=== PATIENT | male | born 1975 | race Caucasian/White ===

== ENCOUNTER 2019-12-07 07:08 | Inpatient (IN) | payer SELFPAY ==
[2019-12-07] VITALS (15 sets, daily range): BP systolic 134–158; BP diastolic 81–105; PULSE 64–109; RESP 14–24; TEMP 36.3–37.1; O2SAT 90–98; BMI 24.4
--- NOTE | 2019-12-07 07:27 | CT_ITS ---
WS: [id number] CT ABDOMEN AND PELVIS WITH CONTRAST HISTORY: upper abdominal pain TECHNIQUE: Imaging performed of the abdomen and pelvis with IV contrast. Single phase imaging of the abdomen. Coronal and sagittal reformats are submitted. All CT scans at [facility] use at least one of these dose optimization techniques: automated exposure control; mA and/or kV adjustment per patient size (includes targeted exams where dose is matched to clinical indication); or iterativ e reconstruction. IV CONTRAST: Omnipaque 300; 95 mL IV. Oral contrast: No DLP: 642.64 mGy.cm COMPARISON: 02/07/2019 chest CTA Lower thorax: Benign granulomata at the lung bases. Heart is normal size. No hiatal hernia. Liver/biliary system: Liver is mildly enlarged. No mass or intrahepatic dilatation. Gallbladder: Prior cholecystectomy. Pancreas: Normal. Spleen: Normal. Adrenal glands: Normal. Right kidney: Normal. Left kidney: Normal. Aorta: Moderate atherosclerosis of the abdominal aorta. No aneurysm. Lymphadenopathy: There are small retroperitoneal lymph nodes. Small benign-appearing lymph nodes in t he inguinal regions bilaterally. Free fluid: None. GI tract: Dilated small bowel loops with hyperemia. Fluid-filled small bowel loops with wall thickeni ng. There is a change in caliber in the mid small bowel seen on image 60 of series 2 There is additio nal increased fluid at the cecum. The appendix is not definitely identified. Abdominal wall: Unremarkable abdominal wall. No hernia. Pelvis: Normal. Bones: Reversal the normal lumbar lordosis at L1-2. No fractures. CT/CT abdomen pelvis w con* [id number] IMPRESSION: 1. Moderate diffuse small bowel fluid distention with wall thickening and hype remia. There is an area of tethering and mesenteric swirling with changing shawna nenita in the mid small bowel. Seen on image 60 of series 2. Suspect this may be r esponsible for the small bowel dilatation. Adhesions or small bowel stricture o r neoplasm should be considered. 2. The appendix is not definitely visualized. 3. Advanced atherosclerosis of aorta for patient's age. 4. Prior cholecystectomy.
--- NOTE | 2019-12-07 07:27 | W.ED.ABDPA2 ---
Documented by User: CHRISTIAN Townsend 12/07/19 11:03 HPI - Abdominal Pain General: Chief Complaint: Abdominal Pain Stated Complaint: ABDOMINAL PAIN Time Seen by Provider: 12/07/19 07:16 Source: patient Mode of arrival: ambulatory Limitations: no limitations History of Present Illness: HPI narrative: Patient is a 44-year-old male who presents to ED today with complaints of upper abdominal pain over the past 2 weeks. He states pain has been constant with intermittent exacerbations. He cannot find any worsening or alleviating factors to his discomfort. He states it does feel similar to when he had his gallbladder taken out. Patient reports one episode of vomiting almost daily since he was a kid . This has not increased at all. He has not noticed any blood in his vomit. He has no changes in bowel or urinary habits. No fevers. Patient states he does consume alcohol regularly. No recent NSAID use. He does have a history of heartburn that used to be treated with medications but no longer takes these. MD elicited complaint: abdominal pain Pertinent past history: none Onset (ago): week(s) Pain Consistency: constant and intermittent Location: Epigastric Severity: moderate Quality: stabbing, sharp and burning Radiation: none Migration to: no migration Exacerbating factors: nothing Relieving factors: nothing Associated Symptoms: Reports vomiting (reports 1 episode of vomiting daily since I was a kid ; no increase lately); Denies change in stool character, chills, coffee ground emesis, constipation, diarrhea, dysuria, fever(s), heartburn, hematochezia, hematemesis, melena, nausea and syncope Review of Systems General: Reports: 10 or more systems reviewed and unremarkable except in HPI and below Const: Denies: fever(s), chills, body aches, change in appetite, change in weight, fatigue, malaise or night sweats Eyes: Denies: change in vision or blurry vision ENMT: Denies: throat pain, enlarged tonsils or odynophagia Card: Denies: chest pain, palpitations, irregular heart rhythm, edema, swelling of feet/ankles, lightheadedness, syncope, pre-syncope, dyspnea on exertion, orthopnea, leg pain with exertion or acrocyanosis Resp: Denies: dyspnea, productive cough, non-productive cough, pain on inspiration, hemoptysis or chest congestion GI: Reports: abdominal pain and vomiting (reports 1 episode of vomiting daily since I was a kid ; no increase lately); Denies: nausea, hematemesis, coffee ground emesis, dysphagia, heartburn, diarrhea, constipation, pain on defecation, change in stool character, hematochezia, melena, white/light colored stool or steatorrhea : Denies: flank pain, difficulty urinating, dysuria, urinary frequency, urinary urgency or urinary hesitancy Musc: Denies: neck pain, back pain, extremity pain, extremity swelling, joint pain or joint swelling Skin/Breast: Denies: rash Neuro: Denies: headache(s), numbness in extremities, weakness in extremities or sensory changes PFSH ED PFSH: Medical History COPD (chronic obstructive pulmonary disease) Hypertension Normal coronary arteries on arteriogram done at [facility] [place] Surgical History History of cholecystectomy Done in [place], [place] Family History Mother Cancer Father CHF (congestive heart failure) Social History Smoking and tobacco status: current every day smoker Alcohol intake: current Alcohol intake frequency: 3 or more drinks per day Alcohol type: beer Current occupational status: employed Current occupation: [employer] Physical Exam Const: COMMON NORMALS: average body habitus, patient oriented x3, no limitations, healthy appearing, alert and well nourished GENERAL APPEARANCE: in distress (appears uncomfortable/in pain) HENMT: COMMON NORMALS: normocephalic and atraumatic HEAD & SCALP: normocephalic and atraumatic Chest: COMMONS NORMALS: normal inspection of the chest and normal palpation of entire chest wall Resp: COMMON NORMALS: normal respiratory effort and clear to auscultation bilaterally AUSCULTATION: clear to auscultation bilaterally Cardio: COMMON NORMALS: regular rhythm RATE: tachycardic RHYTHM: regular rhythm GI: COMMON NORMALS: No hepatosplenomegaly present and no masses INSPECTION: Yes normal to inspection AUSCULTATION: Yes normoactive bowel sounds PALPATION: Yes Tenderness to palpation present (GI) (throughout upper abdomen) and Yes No hepatosplenomegaly present : COMMON NORMALS: Yes no CVA tenderness BLADDER/KIDNEY EXAM: Yes no CVA tenderness Back/Pelvis: COMMON NORMALS: no CVA tenderness Extremity: COMMON NORMALS: normal to inspection and full ROM Neuro: COMMON NORMALS: patient oriented x3 SENSORIUM/ORIENTATION: Yes alert Skin: COMMON NORMALS: no rashes or lesions noted GENERAL SKIN EXAM: no rashes or lesions noted Course Vital Signs: Vital signs: Vital Signs Temperature 99.2 F 12/09/19 14:22 Pulse Rate 93 12/09/19 14:22 Respiratory Rate 20 H 12/09/19 14:22 Blood Pressure 166/92 12/09/19 14:22 Pulse Oximetry 97 12/09/19 14:22 MDM - Abdominal Pain MDM Narrative: Medical decision making narrative: pt appears to have SBO on his CT scan; he is also hyponatremic at 121; spoke to Dr. De La Garza and he will speak to general surgery/hospitalist for admission; will order NG tube Lab Data: Labs: Lab Results 12/07/19 12/07/19 12/07/19 Range/Units 07:35 07:35 07:35 WBC 6.6 (4.0-10.0) 10^3/ uL RBC 5.03 (4.1-5.3) 10^6/u L Hgb 15.5 (11.7-16.6) g/dL Hct 44.0 (42.0-52.0) % MCV 87.5 (80-94) fL MCH 30.8 (28.0-34.0) pg MCHC 35.2 (30.0-36.0) g/dL RDW 13.3 (12.1-15.1) % Plt Count 328 (130-400) 10^3/c mm MPV 8.8 (7.4-10.4) fL Neut % (Auto) 58.4 % Lymph % (Auto) 29.5 % Cannon % (Auto) 10.5 % Eos % (Auto) 0.8 % Baso % (Auto) 0.5 % Neut # (Auto) 3.9 (1.8-7.7) 10^3/u L Lymph # (Auto) 1.9 (0.8-4.8) 10^3/u L Cannon # (Auto) 0.7 (0.2-0.9) 10^3/u L Eos # (Auto) 0.1 (0.0-0.8) 10^3/u L Baso # (Auto) 0.0 (0.0-0.1) 10^3/u L Nucleated RBC % (a uto) 0 % Nucleated RBCs # 0.0 /100WBC Sodium 121 L (136-145) mmol/L Potassium 4.4 (3.5-5.1) mmol/L Chloride 87 L (98-107) mmol/L Carbon Dioxide 21 L (22-29) mmol/L Anion Gap 17.4 (5-19) BUN 3 L (6-20) mg/dL Creatinine 0.7 (0.7-1.2) mg/dL GFR Calculation 122.0 (90-130) mL/min Glucose 92 (65-115) mg/dL Calculated Osmolal ity 247 L (285-295) mOsm/k g Lactate (0.5-2.2) mmol/L Uric Acid 4.4 (3.4-7.0) mg/dL Calcium 9.4 (8.5-10.5) mg/dL Total Bilirubin 0.2 (0.15-1.2) mg/dL AST 28 (0-40) U/L ALT 19 (0-41) U/L Alkaline Phosphata se 68 (40-130) IU/L Total Protein 7.0 (6.6-8.7) g/dL Albumin 4.0 (3.5-5.2) g/dL Globulin 3.0 (1.3-4.6) g/dL Lipase 20 (13-60) U/L Urine Color (Yellow) Urine Appearance (CLEAR) Urine pH (5-7) Ur Specific Gravit y (1.005-1.030) Urine Protein (Negative) Urine Glucose (UA) (Normal) Urine Ketones (Negative) Urine Blood (Negative) Urine Nitrate (Negative) Urine Bilirubin (NEGATIVE) Urine Urobilinogen (Negative) mg/dL Ur Leukocyte Chantelle ase (Negative) Urine RBC (0-2) /hpf Urine WBC (0-5) /hpf Ur Squamous Epith Cells (0-5) Urine Bacteria (NONE) 12/07/19 12/07/19 Range/Units 08:43 09:30 WBC (4.0-10.0) 10^3/ uL RBC (4.1-5.3) 10^6/u L Hgb (11.7-16.6) g/dL Hct (42.0-52.0) % MCV (80-94) fL MCH (28.0-34.0) pg MCHC (30.0-36.0) g/dL RDW (12.1-15.1) % Plt Count (130-400) 10^3/c mm MPV (7.4-10.4) fL Neut % (Auto) % Lymph % (Auto) % Cannon % (Auto) % Eos % (Auto) % Baso % (Auto) % Neut # (Auto) (1.8-7.7) 10^3/u L Lymph # (Auto) (0.8-4.8) 10^3/u L Cannon # (Auto) (0.2-0.9) 10^3/u L Eos # (Auto) (0.0-0.8) 10^3/u L Baso # (Auto) (0.0-0.1) 10^3/u L Nucleated RBC % (a uto) % Nucleated RBCs # /100WBC Sodium (136-145) mmol/L Potassium (3.5-5.1) mmol/L Chloride (98-107) mmol/L Carbon Dioxide (22-29) mmol/L Anion Gap (5-19) BUN (6-20) mg/dL Creatinine (0.7-1.2) mg/dL GFR Calculation (90-130) mL/min Glucose (65-115) mg/dL Calculated Osmolal ity (285-295) mOsm/k g Lactate 2.0 (0.5-2.2) mmol/L Uric Acid (3.4-7.0) mg/dL Calcium (8.5-10.5) mg/dL Total Bilirubin (0.15-1.2) mg/dL AST (0-40) U/L ALT (0-41) U/L Alkaline Phosphata se (40-130) IU/L Total Protein (6.6-8.7) g/dL Albumin (3.5-5.2) g/dL Globulin (1.3-4.6) g/dL Lipase (13-60) U/L Urine Color Straw (Yellow) Urine Appearance Clear (CLEAR) Urine pH 7.0 (5-7) Ur Specific Gravit y 1.000 L (1.005-1.030) Urine Protein 1+ H (Negative) Urine Glucose (UA) Norm (Normal) Urine Ketones Negative (Negative) Urine Blood Neg (Negative) Urine Nitrate Negative (Negative) Urine Bilirubin Neg (NEGATIVE) Urine Urobilinogen Norm (Negative) mg/dL Ur Leukocyte Chantelle ase Negative (Negative) Urine RBC None (0-2) /hpf Urine WBC None (0-5) /hpf Ur Squamous Epith Cells 0-4 H (0-5) Urine Bacteria Trace (NONE) Imaging Data ^: CT Abd/Pel: Radiologist's impression: [place] [address] CT Scan Report Signed Patient: Ck Calvillo Unit #: [id number] : 1975 Age/Sex: 44 / M ADM Date: 12/07/19 Loc: ER Room/Bed: Attending Dr: Ordering Provider/Ordering MD: Roxanne Varghese Date of Service: 12/07/19 Procedure(s): CT abdomen pelvis w con* [id number] Accession Number(s): [id number] Report Number: [id number] WS: [id number] CT ABDOMEN AND PELVIS WITH CONTRAST HISTORY: upper abdominal pain TECHNIQUE: Imaging performed of the abdomen and pelvis with IV contrast. Single phase imaging of the abdomen. Coronal and sagittal reformats are submitted. All CT scans at [facility] use at least one of these dose optimization techniques: automated exposure control; mA and/or kV adjustment per patient size (includes targeted exams where dose is matched to clinical indication); or iterative reconstruction. IV CONTRAST: Omnipaque 300; 95 mL IV. Oral contrast: No DLP: 642.64 mGy.cm COMPARISON: 02/07/2019 chest CTA Lower thorax: Benign granulomata at the lung bases. Heart is normal size. No hiatal hernia. Liver/biliary system: Liver is mildly enlarged. No mass or intrahepatic dilatation. Gallbladder: Prior cholecystectomy. Pancreas: Normal. Spleen: Normal. Adrenal glands: Normal. Right kidney: Normal. Left kidney: Normal. Aorta: Moderate atherosclerosis of the abdominal aorta. No aneurysm. Lymphadenopathy: There are small retroperitoneal lymph nodes. Small benign-appearing lymph nodes in the inguinal regions bilaterally. Free fluid: None. GI tract: Dilated small bowel loops with hyperemia. Fluid-filled small bowel loops with wall thickening. There is a change in caliber in the mid small bowel seen on image 60 of series 2 There is additional increased fluid at the cecum. The appendix is not definitely identified. Abdominal wall: Unremarkable abdominal wall. No hernia. Pelvis: Normal. Bones: Reversal the normal lumbar lordosis at L1-2. [address] fractures[address] CT/CT abdomen pelvis w con* [id number] IMPRESSION: 1. Moderate diffuse small bowel fluid distention with wall thickening and hyperemia. There is an area of tethering and mesenteric swirling with changing caliber in the mid small bowel. Seen on image 60 of series 2. Suspect this may be responsible for the small bowel dilatation. Adhesions or small bowel stricture or neoplasm should be considered. 2. The appendix is not definitely visualized. 3. Advanced atherosclerosis of aorta for patient's age. 4. Prior cholecystectomy. Dictated By: Laura Vitale DO Signed By: Laura Vitale DO Signed Date/Time: 12/07/19816 DD/ 8 Discharge Plan Discharge Patient Disposition: Admitted As Inpatient Admit Provider: Aaliyah Donaldson Clinical Impression: SBO (small bowel obstruction), Acute hyponatremia Condition: Stable Discharge Orders: Discharge Order (Routine); Ordered 12/09/19 Ordered By: Luigi Youssef Referrals: Socorro Torres DO [Primary Care Provider] - 2 weeks (At follow up needs BP check. Faxed face sheet to [facility] and instructed them to make an appointment and call you with that information. 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 This been going on for last 2 to 3 weeks's and increasingly worsening over the last few days. He states he vomits basically daily and he has done this since he was a kid he denies any hematemesis or coffee-ground emesis. He states the abdominal pain is worse when he lays down he did have a bowel movement has multiple bowel movements per day since he had his cholecystectomy his last one was this morning. He denies any hematochezia or melena. He is not had any other illness he denies any respiratory problems denies any problems no chest pain. He has previously had a laparoscopic cholecystectomy that is his only known abdominal surgery. He did have an angiogram but that was done 4 years ago and was normal MD elicited complaint: abdominal pain Pertinent past history: other (Previous laparoscopic cholecystectomy) Onset (ago): week(s) (2 to 3 weeks) Pain Consistency: intermittent Location: Periumbilical Severity: severe Pain scale (0-10): 10 Quality: cramping Radiation: none Migration to: no migration Exacerbating factors: movement Relieving factors: nothing Associated Symptoms: Reports bloating, heartburn, loose stools, nausea and vomiting; Denies anorexia, belching, change in stool character, chills, coffee ground emesis, constipation, dysuria, fever(s) and hematemesis Review of Systems Const: Denies: fever(s), chills, body aches, change in appetite, fatigue or malaise ENMT: Denies: throat pain, ear or mastoid pain, nasal discharge or nasal congestion Card: Denies: chest pain, edema, dyspnea on exertion or orthopnea Resp: Denies: dyspnea, productive cough or non-productive cough GI: Reports: abdominal pain, nausea, vomiting, heartburn and bloating; Denies: hematemesis, coffee ground emesis, dysphagia, constipation, belching or change in stool character : Denies: flank pain, dysuria, urinary frequency or urinary urgency Skin/Breast: Denies: rash or pruritus PFSH ED PFSH: Medical History COPD (chronic obstructive pulmonary disease) Hypertension Normal coronary arteries on arteriogram done at [facility] [place] Surgical History History of cholecystectomy Done in [place], [place] Family History Mother Cancer Father CHF (congestive heart failure) Social History Smoking and tobacco status: current every day smoker Alcohol intake: current Alcohol intake frequency: 3 or more drinks per day Alcohol type: beer Current occupational status: employed Current occupation: [employer] Physical Exam Const: COMMON NORMALS: no acute distress GENERAL APPEARANCE: cooperative and comfortable ORIENTATION/CONSCIOUSNESS: Yes awake, Yes oriented to person, Yes oriented to place and Yes oriented to time HENMT: COMMON NORMALS: normocephalic, atraumatic, hearing grossly normal bilaterally, external ears normal, EAC's normal, TM's normal bilaterally, Normal nasal mucous membranes and turbinates present, moist oral mucous membranes and oropharynx normal HEAD & SCALP: normocephalic and atraumatic NOSE: Normal nasal mucous membranes and turbinates present EXTERNAL EAR: Yes external ears normal EXTERNAL AUDITORY CANAL: EAC's normal TYMPANIC MEMBRANE: TM's normal bilaterally Eye: COMMON NORMALS: Equal, round and reactive pupils present, EOMs intact bilaterally, conjunctivae normal and no scleral icterus CONJUNCTIVA: Yes conjunctivae normal PUPIL: Yes Equal, round and reactive pupils present Neck/C-Spine: COMMON NORMALS: full ROM, no lymphadenopathy, supple and no JVD Lymph: LYMPHATIC: no lymphadenopathy noted and no lymphedema noted Resp: COMMON NORMALS: normal respiratory effort, No retractions, No use of accessory muscles and clear to auscultation bilaterally AUSCULTATION: clear to auscultation bilaterally Cardio: COMMON NORMALS: no JVD, regular rate, regular rhythm and No murmurs present (Cardio) RATE: regular rate RHYTHM: regular rhythm GI: COMMON NORMALS: Soft to palpation and No hepatosplenomegaly present AUSCULTATION: Yes Hypoactive bowel sounds present PALPATION: Yes Soft to palpation, No Tenderness to palpation present (GI), No Guarding due to palpation present (GI) and Yes No hepatosplenomegaly present Extremity: COMMON NORMALS: normal to inspection, capillary refill normal, no clubbing, cyanosis or edema, no calf tenderness and no pedal edema Neuro: SENSORIUM/ORIENTATION: Yes oriented to person, Yes oriented to place and Yes oriented to time Skin: COMMON NORMALS: no rashes or lesions noted GENERAL SKIN EXAM: no rashes or lesions noted Course Vital Signs: Vital signs: Vital Signs Temperature 99.2 F 12/09/19 14:22 Pulse Rate 93 12/09/19 14:22 Respiratory Rate 20 H 12/09/19 14:22 Blood Pressure 166/92 12/09/19 14:22 Pulse Oximetry 97 12/09/19 14:22 MDM - Abdominal Pain MDM Narrative: Medical decision making narrative: Discussed with the patient also discussed Dr. Tavarez the hospitalist will go ahead and admit to general surgery and consult hospitalist. Lab Data: Labs: Lab Results 12/07/19 12/07/19 12/07/19 Range/Units 07:35 07:35 07:35 WBC 6.6 (4.0-10.0) 10^3/ uL RBC 5.03 (4.1-5.3) 10^6/u L Hgb 15.5 (11.7-16.6) g/dL Hct 44.0 (42.0-52.0) % MCV 87.5 (80-94) fL MCH 30.8 (28.0-34.0) pg MCHC 35.2 (30.0-36.0) g/dL RDW 13.3 (12.1-15.1) % Plt Count 328 (130-400) 10^3/c mm MPV 8.8 (7.4-10.4) fL Neut % (Auto) 58.4 % Lymph % (Auto) 29.5 % Cannon % (Auto) 10.5 % Eos % (Auto) 0.8 % Baso % (Auto) 0.5 % Neut # (Auto) 3.9 (1.8-7.7) 10^3/u L Lymph # (Auto) 1.9 (0.8-4.8) 10^3/u L Cannon # (Auto) 0.7 (0.2-0.9) 10^3/u L Eos # (Auto) 0.1 (0.0-0.8) 10^3/u L Baso # (Auto) 0.0 (0.0-0.1) 10^3/u L Nucleated RBC % (a uto) 0 % Nucleated RBCs # 0.0 /100WBC Sodium 121 L (136-145) mmol/L Potassium 4.4 (3.5-5.1) mmol/L Chloride 87 L (98-107) mmol/L Carbon Dioxide 21 L (22-29) mmol/L Anion Gap 17.4 (5-19) BUN 3 L (6-20) mg/dL Creatinine 0.7 (0.7-1.2) mg/dL GFR Calculation 122.0 (90-130) mL/min Glucose 92 (65-115) mg/dL Calculated Osmolal ity 247 L (285-295) mOsm/k g Lactate (0.5-2.2) mmol/L Uric Acid 4.4 (3.4-7.0) mg/dL Calcium 9.4 (8.5-10.5) mg/dL Total Bilirubin 0.2 (0.15-1.2) mg/dL AST 28 (0-40) U/L ALT 19 (0-41) U/L Alkaline Phosphata se 68 (40-130) IU/L Total Protein 7.0 (6.6-8.7) g/dL Albumin 4.0 (3.5-5.2) g/dL Globulin 3.0 (1.3-4.6) g/dL Lipase 20 (13-60) U/L Urine Color (Yellow) Urine Appearance (CLEAR) Urine pH (5-7) Ur Specific Gravit y (1.005-1.030) Urine Protein (Negative) Urine Glucose (UA) (Normal) Urine Ketones (Negative) Urine Blood (Negative) Urine Nitrate (Negative) Urine Bilirubin (NEGATIVE) Urine Urobilinogen (Negative) mg/dL Ur Leukocyte Chantelle ase (Negative) Urine RBC (0-2) /hpf Urine WBC (0-5) /hpf Ur Squamous Epith Cells (0-5) Urine Bacteria (NONE) 12/07/19 12/07/19 Range/Units 08:43 09:30 WBC (4.0-10.0) 10^3/ uL RBC (4.1-5.3) 10^6/u L Hgb (11.7-16.6) g/dL Hct (42.0-52.0) % MCV (80-94) fL MCH (28.0-34.0) pg MCHC (30.0-36.0) g/dL RDW (12.1-15.1) % Plt Count (130-400) 10^3/c mm MPV (7.4-10.4) fL Neut % (Auto) % Lymph % (Auto) % Cannon % (Auto) % Eos % (Auto) % Baso % (Auto) % Neut # (Auto) (1.8-7.7) 10^3/u L Lymph # (Auto) (0.8-4.8) 10^3/u L Cannon # (Auto) (0.2-0.9) 10^3/u L Eos # (Auto) (0.0-0.8) 10^3/u L Baso # (Auto) (0.0-0.1) 10^3/u L Nucleated RBC % (a uto) % Nucleated RBCs # /100WBC Sodium (136-145) mmol/L Potassium (3.5-5.1) mmol/L Chloride (98-107) mmol/L Carbon Dioxide (22-29) mmol/L Anion Gap (5-19) BUN (6-20) mg/dL Creatinine (0.7-1.2) mg/dL GFR Calculation (90-130) mL/min Glucose (65-115) mg/dL Calculated Osmolal ity (285-295) mOsm/k g Lactate 2.0 (0.5-2.2) mmol/L Uric Acid (3.4-7.0) mg/dL Calcium (8.5-10.5) mg/dL Total Bilirubin (0.15-1.2) mg/dL AST (0-40) U/L ALT (0-41) U/L Alkaline Phosphata se (40-130) IU/L Total Protein (6.6-8.7) g/dL Albumin (3.5-5.2) g/dL Globulin (1.3-4.6) g/dL Lipase (13-60) U/L Urine Color Straw (Yellow) Urine Appearance Clear (CLEAR) Urine pH 7.0 (5-7) Ur Specific Gravit y 1.000 L (1.005-1.030) Urine Protein 1+ H (Negative) Urine Glucose (UA) Norm (Normal) Urine Ketones Negative (Negative) Urine Blood Neg (Negative) Urine Nitrate Negative (Negative) Urine Bilirubin Neg (NEGATIVE) Urine Urobilinogen Norm (Negative) mg/dL Ur Leukocyte Chantelle ase Negative (Negative) Urine RBC None (0-2) /hpf Urine WBC None (0-5) /hpf Ur Squamous Epith Cells 0-4 H (0-5) Urine Bacteria Trace (NONE) Discharge Plan Discharge Patient Disposition: Admitted As Inpatient Admit Provider: Aaliyah Donaldson Clinical Impression: SBO (small bowel obstruction), Acute hyponatremia Condition: Stable Discharge Orders: Discharge Order (Routine); Ordered 12/09/19 Ordered By: Luigi Youssef Referrals: Socorro Torres DO [Primary Care Provider] - 2 weeks (At follow up needs BP check. Faxed face sheet to [facility] and instructed them to make an appointment and call you with that information. 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
[2019-12-07] MEDS: sodium chloride 0.9% 1,000 ML 999 ML IV ×2 (07:36→09:50)
[2019-12-07] MEDS: lidocaine 2% viscous 15 ML, aluminum-mag hydrox-simethicon 30 ML, sucralfate oral liq 1 GM PO (07:38)
[2019-12-07] MEDS: iohexol 300 mg/mL 100 mL Btl IV (08:03)
[2019-12-07 08:16] LABS: Basophils % 0.5 %; Eosinophils # 0.1 10^3/uL (0.0-0.8); Eosinophils % 0.8 %; Hemoglobin 15.5 g/dL (11.7-16.6); Lymphocytes # 1.9 10^3/uL (0.8-4.8); Lymphocytes % 29.5 %; Mean Corpuscular HGB Conc 35.2 g/dL (30.0-36.0); Mean Corpuscular Hemoglobin 30.8 pg (28.0-34.0); Mean Corpuscular Volume 87.5 fL (80-94); Mean Platelet Volume 8.8 fL (7.4-10.4); Monocytes # 0.7 10^3/uL (0.2-0.9); Monocytes % 10.5 %; Neutrophils # 3.9 10^3/uL (1.8-7.7); Neutrophils % 58.4 %; Nucleated Red Blood Cells % 0 %; Platelet Count 328 10^3/cmm (130-400); Red Blood Count 5.03 10^6/uL (4.1-5.3); Red Cell Distribution Width 13.3 % (12.1-15.1); White Blood Count 6.6 10^3/uL (4.0-10.0)
[2019-12-07] MEDS: morphine 4 mg/mL SDV 1 mL IVP (08:21)
[2019-12-07] MEDS: ondansetron 2 mg/ML SDV 2 mL 4 MG IVP (08:22)
[2019-12-07 08:28] LABS: Alanine Aminotransferase 19 U/L (0-41); Alkaline Phosphatase 68 IU/L (40-130); Anion Gap 17.4 (5-19); Aspartate Amino Transferase 28 U/L (0-40); Blood Urea Nitrogen 3 mg/dL (6-20); Calcium 9.4 mg/dL (8.5-10.5); Carbon Dioxide 21 mmol/L (22-29); Chloride 87 mmol/L (98-107); Glucose 92 mg/dL (65-115); Lipase 20 U/L (13-60); Osmolality Calculated 247 mOsm/kg (285-295); Potassium 4.4 mmol/L (3.5-5.1); Sodium 121 mmol/L (136-145); Total Bilirubin 0.2 mg/dL (0.15-1.2)
[2019-12-07] MEDS: cetacaine Spray 5 gm Can 5 SPRAY (09:23)
--- NOTE | 2019-12-07 09:37 | XR_ITS ---
WS: [id number] PORTABLE CHEST HISTORY: check NG tube placement COMPARISON: 02/07/2019 Interval placement of a nasogastric tube in good position. Tip is extending towards the antrum. Mildly hyperinflated lungs with granulomata. Chronic blunting RIGHT costophrenic angle. No pleural ef fusion or pneumothorax. Cardiac size: Normal. Mediastinum/Aorta: Normal mediastinum. No osseous abnormality seen. Calcified performed by the soft tissues overlying the RIGHT scapula. XR/XR chest 1V portable [id number] IMPRESSION: 1. Satisfactory placement of nasogastric tube. Stable chronic RIGHT costophrenic angle.
[2019-12-07 09:45] LABS: Uric Acid 4.4 mg/dL (3.4-7.0)
[2019-12-07] MEDS: sodium chlor 0.9% + KCl 20 mEq 20 MEQ/1,000 ML BAG 125 MEQ IV (09:50)
[2019-12-07] MEDS: LORazepam 2 mg/mL INJ 1 mL 1 MG IVP (10:15)
[2019-12-07 10:20] LABS: Add Urine Microscopic? YES; Bilirubin Urine Neg (NEGATIVE); Blood Urine Neg (Negative); Glucose Urine UA Norm (Normal); Ketones Urine Negative (Negative); Leukocyte Esterase Urine Negative (Negative); Nitrate Urine Negative (Negative); Protein Urine 1+ (Negative); Urine Appearance Clear (CLEAR); Urine Color Straw (Yellow); Urobilinogen Urine Norm (Negative)
[2019-12-07 10:32] LABS: Add Urine Culture? No; Bacteria Urine TRACE; Squamous Epithelial Cell Urine 0-4 (0-5)
[2019-12-07 10:48] LABS: ABG PCO2 41.5 mmHg (35-45); ABG PH Result 7.42 (7.35-7.45); Alveolar-Arterial Oxygen Gradi 44.1 mmHg (5-10); Arterial Blood Gas Hematocrit 43.9 % (42-52); Base Excess ABG 1.9 mmol/L (-2.0-2.0); Blood Gas Allen Test Pos; Blood Gas Operator Identificat amh; Blood Gas Sample Site Radial, left; Blood Gas Sample Type Arterial; Carboxyhemoglobin 5.7 %THgb (0.4-20.1); HCO3 ABG 26.7 mmol/L (22-26); Ionized Calcium Level - ABG 1.1 mmol/L (1.1-1.4); Methemoglobin 0.9 % (0.4-1.5); Oxygen Device ROOM AIR; Oxygen Saturation ABG 87.8; PO2 ABG 53.9 mmHg (80.0-100.0); Total Hemoglobin 14.3 g/dL (14-18)
--- NOTE | 2019-12-07 12:43 | PC.NURSE ---
Report called to [facility] on [id number]. Gave full report. Answered all questions.Pt is stable and ready to be moved. Nurse will take pt to the floor.
--- NOTE | 2019-12-07 13:08 | PC.NURSE ---
Suction container emptied of 1000 cc of yellow brown gastric content. Nurse tech took pt to the floor Pt is arik
[2019-12-07 14:42] LABS: Urine Creatinine 20 mg/dL (39-259)
[2019-12-07 14:49] LABS: Urine Random Sodium 19 mmol/L
--- NOTE | 2019-12-07 16:36 | PM.CONSULT ---
Providers/Reason For Consult Consulting Physican/Specialty*: Dr. Donaldson, hospitalist Reason for Consult*: NG tube intact, dry mucous membranes Attending Physician: Dr. Youssef Primary Care Provider: Socorro Torres DO History of Present Illness History of Present Illness Ck Calvillo is a 44 year old male patient is a 44-year-old gentleman who presented to the emergency room with abdominal pain. Pain was severe in nature enough to bring him in. He is never had anything like this before. He has had long-term issues with daily vomiting upon awakening since his childhood years. Today he had what is normal for him but it was followed after that by few more episodes of vomiting. He describes having some loose stools lately. Yesterday he was passing gas but today he has not. He has not had any bowel movement today. It is normal for him to have variable bowel movements. Pain was primarily in epigastric area initially and extended downward. He felt very bloated. In the emergency room he was found to have evidence of small bowel obstruction with a transition point. He is admitted to Dr. Youssef service. Hospitalist consult was requested because of hyponatremia with a sodium of 121, hypertension and COPD. Presently patient is tolerating the NG tube okay but continues to have abdominal discomfort. He does not feel like his breathing is any worse than baseline currently. He does smoke more than 2 packs of cigarettes a day. No recent fevers. No reported chest pain beyond what he has experienced today with abdominal pain and vomiting. Review of Systems Const: Reports: change in appetite; Denies: fever(s), chills or change in weight Eyes: Denies: change in vision ENMT: Reports: dry mouth; Denies: throat pain or nasal congestion Card: Reports: edema (left leg always swollen after injury); Denies: chest pain or palpitations Resp: Reports: dyspnea (baselines) and productive cough; Denies: non-productive cough GI: Reports: abdominal pain (epigastric and central), nausea, vomiting (daily ememsis in am since 9 yrs old, not worse) and diarrhea; Denies: constipation or excessive flatus (none today) : Denies: difficulty urinating Musc: Denies: extremity pain Skin/Breast: Reports: sores (from work); Denies: rash or pruritus Neuro: Denies: headache(s), numbness in extremities, weakness in extremities or dizziness Psych: Denies: anxiety or depression Redd/Lymph: Denies: easy bruising or easy bleeding Meds/Allergies Home Medications and Allergies Home Medications Medication Instructions Recorded Confirmed Last Taken Type acetaminophen [Tylenol] 325 mg PO QID PRN 12/07/19 12/07/19 12/07/19 History aspirin 325 mg PO DAILY 12/07/19 12/07/19 12/06/19 History Allergies Allergy/AdvReac Type Severity Reaction Status Date / Time naproxen Allergy ALGY-Swell Verified 12/07/19 07:30 Lip/Tongue/Throat Sulfa (Sulfonamide Allergy ALGY-Rash Verified 12/07/19 07:30 Antibiotics) Current Medications Current Medications Generic Name Dose Route Start Last Admin Trade Name Freq PRN Reason Stop Dose Admin Potassium Chloride/Sodium Chloride 20 meq in 1,000 mls @ 125 mls/hr 12/07/19 09:15 12/07/19 12:29 Sodium Chlor 0.9% + Kcl 20 Meq IV 125 mls/hr .Q8H SUNDEEP Infusion PFSH Acute PFSH: Medical History COPD (chronic obstructive pulmonary disease) Hypertension Normal coronary arteries on arteriogram done at [facility] in 2016 Surgical History History of cholecystectomy Done in [place], [place] Family History (Updated 12/07/19 @ 17:17 by Aaliyah Donaldson MD) Mother Cancer Father CHF (congestive heart failure) Social History Smoking and tobacco status: current every day smoker Alcohol intake: current Alcohol intake frequency: 3 or more drinks per day Alcohol type: beer Current occupational status: employed 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 Vitals/I&O/Wt Last Vital Signs Temp 98.2 F 12/07/19 16:00 Pulse 101 H 12/07/19 16:00 Resp 18 12/07/19 16:00 BP 138/81 12/07/19 16:00 Pulse Ox 90 12/07/19 16:00 12/07/19 12/07/19 12/07/19 06:59 14:59 22:59 Intake Total 1002.083 / 1002.083 Output Total 700 / 700 700 / 1400 Balance 302.083 / 302.083 -700 / -397.917 Weight last 48 hrs Weight 79.379 kg Physical Exam Const: OTHER: Alert, oriented x3, looks uncomfortable, mildly ill HENMT: OTHER: Normocephalic atraumatic, NG tube intact, dry mucous membranes Eye: OTHER: Pupils equally round and reactive to light, conjunctive a injected Neck/C-Spine: OTHER: Supple Resp: OTHER: Wheezes noted expiratory next Tory bilaterally. Productive cough. No accessory muscle use noted Cardio: OTHER: Regular rhythm rate at upper 90s, no murmurs noted although pulmonary sounds obscure cardiac exam to a degree GI: OTHER: Abdomen is soft, tenderness without rebound or guarding noted really across the midline of the abdomen up into the epigastric area : OTHER: Deferred Extremity: NARRATIVE EXTREMITY EXAM: Left lower extremity is slightly larger in diameter than right lower extremity but no pitting edema is noted Neuro: OTHER: Face symmetric, speech clear, moves all extremities, currently without any tremors or other abnormal movements Psych: OTHER: Normal affect, not anxious or agitated, able to provide history Skin: OTHER: Skin without any lesions or rashes noted behind cuts in different stages of healing which appear to be from his employment both chronic and recent skin exposure to sun exposed areas. He does have areas both acute and chronic changes noted on sun exposed areas. Data Labs: Other Labs: Laboratory Tests 12/07/19 12/07/19 12/07/19 07:35 07:35 08:43 Calculated Osmolal ity 247 L Lactate 2.0 Uric Acid 4.4 Lipase 20 Short CBC 12/07/19 12/07/19 12/07/19 Range/Units 07:35 07:35 07:35 WBC 6.6 (4.0-10.0) 10^3/ uL Hgb 15.5 (11.7-16.6) g/dL Hct 44.0 (42.0-52.0) % Plt Count 328 (130-400) 10^3/c mm Glucose 92 (65-115) mg/dL Calculated Osmolal ity 247 L (285-295) mOsm/k g Lactate (0.5-2.2) mmol/L Uric Acid 4.4 (3.4-7.0) mg/dL Lipase 20 (13-60) U/L Ur Random Sodium mmol/L Urine Creatinine (39-259) mg/dL 12/07/19 12/07/19 Range/Units 08:43 13:30 WBC (4.0-10.0) 10^3/ uL Hgb (11.7-16.6) g/dL Hct (42.0-52.0) % Plt Count (130-400) 10^3/c mm Glucose (65-115) mg/dL Calculated Osmolal ity (285-295) mOsm/k g Lactate 2.0 (0.5-2.2) mmol/L Uric Acid (3.4-7.0) mg/dL Lipase (13-60) U/L Ur Random Sodium 19 mmol/L Urine Creatinine 20 L (39-259) mg/dL BMP 12/07/19 07:35 Sodium 121 L Potassium 4.4 Chloride 87 L Carbon Dioxide 21 L BUN 3 L Creatinine 0.7 Glucose 92 Calcium 9.4 Liver Function 12/07/19 Range/Units 07:35 Total Bilirubin 0.2 (0.15-1.2) mg/dL AST 28 (0-40) U/L ALT 19 (0-41) U/L Alkaline Phosphata se 68 (40-130) IU/L Albumin 4.0 (3.5-5.2) g/dL Urine 12/07/19 Range/Units 09:30 Urine Color Straw (Yellow) Urine Appearance Clear (CLEAR) Urine pH 7.0 (5-7) Ur Specific Gravit y 1.000 L (1.005-1.030) Urine Protein 1+ H (Negative) Urine Glucose (UA) Norm (Normal) A&P Assessment and plan (1) Acute hyponatremia: Suspect multifactorial from acute GI issues along with potomania Status: Acute (2) COPD (chronic obstructive pulmonary disease): Related to ongoing tobacco use, not on any chronic inhalers or oxygen Status: Acute Qualifiers: COPD type: COPD with acute exacerbation Qualified Code(s): J44.1 - Chronic obstructive pulmonary disease with (acute) exacerbation (3) Hypertension: Reported history but not on any chronic medications Status: Acute Qualifiers: Hypertension type: unspecified Qualified Code(s): I10 - Essential (primary) hypertension (4) Daily consumption of alcohol: No history of alcohol withdrawal reported Status: Acute (5) Nicotine dependence, cigarettes, with other nicotine-induced disorders: Greater than 2 packs a day Status: Acute (6) SBO (small bowel obstruction): First incidence of small bowel obstruction with only prior abdominal surgery cholecystectomy. Incidentally he does report daily vomiting upon awakening since childhood. Status: Acute Additional A&P Information Continue IV fluids Recheck electrolytes in the morning including magnesium and phosphorus, replacing as indicated Breathing treatments Oxygen therapy if needed Monitor blood pressure for need to add medication Nicotine patch if needed I have ordered the [facility] protocol SCDs for DVT prophylaxis Supportive care otherwise Reviewed plans of care with patient and gave him an opportunity to ask questions Full code Coding Level of Care Code Acute Parcel Post Carrier for [facility] Fwd Diagnoses Acute hyponatremia E87.1 COPD (chronic obstructive pulmonary disease) J44.1 COPD type: COPD with acute exacerbation Hypertension I10 Hypertension type: unspecified Daily consumption of alcohol Z78.9 Nicotine dependence, cigarettes, with other nicotine-induced disorders F17.218 SBO (small bowel obstruction) K56.609
[2019-12-07] MEDS: ipratropium-albuterol 3 mL Neb INHALATION (17:23)
[2019-12-07] MEDS: nicotine 21 mg Patch 1 PATCH TRANSDERMA (17:54)
[2019-12-07] MEDS: D5-NS 0.45% + KCL 20 mEq 20 MEQ/1,000 ML BAG 100 MEQ IV (20:00)
[2019-12-07] MEDS: enoxaparin 40 mg/0.4 mL Syringe SUBCUT (21:17)
[2019-12-07] MEDS: morphine 4 mg/mL SDV 1 mL 2 MG IVP (21:20)
[2019-12-08] VITALS (14 sets, daily range): BP systolic 132–175; BP diastolic 81–90; PULSE 76–104; RESP 17–20; TEMP 36.8–37.1; O2SAT 91–97
[2019-12-08 02:48] LABS: Basophils % 0.3 %; Eosinophils % 0.5 %; Hematocrit 41.2 % (42.0-52.0); Hemoglobin 14.3 g/dL (11.7-16.6); Lymphocytes # 1.3 10^3/uL (0.8-4.8); Lymphocytes % 20.3 %; Mean Corpuscular HGB Conc 34.7 g/dL (30.0-36.0); Mean Corpuscular Hemoglobin 31.7 pg (28.0-34.0); Mean Corpuscular Volume 91.4 fL (80-94); Mean Platelet Volume 8.8 fL (7.4-10.4); Monocytes # 0.6 10^3/uL (0.2-0.9); Monocytes % 8.9 %; Neutrophils # 4.4 10^3/uL (1.8-7.7); Neutrophils % 69.8 %; Nucleated Red Blood Cells % 0 %; Platelet Count 264 10^3/cmm (130-400); Red Blood Count 4.51 10^6/uL (4.1-5.3); Red Cell Distribution Width 13.6 % (12.1-15.1); White Blood Count 6.3 10^3/uL (4.0-10.0)
[2019-12-08 02:49] LABS: Anion Gap 12.3 (5-19); Blood Urea Nitrogen 7 mg/dL (6-20); Calcium 8.3 mg/dL (8.5-10.5); Carbon Dioxide 25 mmol/L (22-29); Chloride 98 mmol/L (98-107); Glucose 116 mg/dL (65-115); Osmolality Calculated 269 mOsm/kg (285-295); Potassium 4.3 mmol/L (3.5-5.1); Sodium 131 mmol/L (136-145)
[2019-12-08] MEDS: D5-NS 0.45% + KCL 20 mEq 20 MEQ/1,000 ML BAG 100 MEQ IV ×2 (03:41→15:12)
--- NOTE | 2019-12-08 06:53 | XR_ITS ---
WS: [id number] ABDOMEN 2 VIEW(S) HISTORY: sbo COMPARISON: 12/07/2019 Nasogastric tube is present with tip in the stomach. Prior cholecystectomy. Small bowel dilatation does appear to slightly improved since the prior study. There is more air in t he distal colon than on the prior CT. Small bowel loops centrally measure up to 3.3 cm. No bone abnormality. XR/XR abdomen min 2V [id number] IMPRESSION: 1. Nasogastric tube in good position. No free air. 2. Slight improvement in the small bowel distention with slight increased amou nt of air in the distal colon.
[2019-12-08] MEDS: ipratropium-albuterol 3 mL Neb INHALATION ×3 (08:27→15:34)
[2019-12-08] MEDS: nicotine 21 mg Patch 1 PATCH TRANSDERMA (08:45)
[2019-12-08] MEDS: multivitamin therapeutic Tablet 1 TAB PO (08:45)
[2019-12-08] MEDS: folic acid 1 mg Tablet PO (08:45)
[2019-12-08] MEDS: thiamine 100 mg Tablet PO (08:45)
[2019-12-08] MEDS: pantoprazole 40 mg SDV IVP (09:09)
--- NOTE | 2019-12-08 11:25 | P.PN_ITS ---
Subjective Subjective: Interval history: Patient feels better today. Abdomen is not as bloated. He is wanting something by mouth and wanting his NG tube removed. I discussed with Dr. Youssef and his x-ray does look better today. His plan is to give him an enema, clamp NG tube and start clear liquid diet. He okay if I went on and started the clears currently. Relayed this to the patient. Vitals/I&O/Wt Last Vital Signs Temp 98.7 F 12/08/19 08:00 Pulse 88 12/08/19 08:33 Resp 17 12/08/19 08:27 BP 165/86 12/08/19 08:00 Pulse Ox 94 12/08/19 08:27 12/07/19 12/08/19 12/08/19 22:59 06:59 14:59 Intake Total 939.583 / 1941.666 768.333 / 2709.999 Output Total 1525 / 2225 400 / 2625 225 / 225 Balance -585.417 / -283.334 368.333 / 84.999 -225 / -225 Weight last 48 hrs Weight 79.379 kg Physical Exam Const: OTHER: Alert, oriented x3, less ill-appearing HENMT: OTHER: NG tube intact dark brown liquid material in the canister and some more solid material noted in the tubing Resp: OTHER: Less wheezing cough this morning Cardio: OTHER: Regular rate GI: OTHER: Abdomen is soft, decreased tenderness, not as rotund Extremity: NARRATIVE EXTREMITY EXAM: No change to lower extremities Neuro: OTHER: Face symmetric, speech clear, moves all extremities, no tremors while using his cell phone in his hands Psych: OTHER: Normal affect, not anxious or agitated appearing Skin: OTHER: No new findings noted on exposed skin surfaces, face remains erythematous. Data : 12/08/19 02:15 12/08/19 02:15 A&P Assessment and plan (1) Acute hyponatremia: Suspect multifactorial from acute GI issues along with potomania > improving Status: Acute (2) COPD (chronic obstructive pulmonary disease): Related to ongoing tobacco use, not on any chronic inhalers or oxygen at home Status: Acute Qualifiers: COPD type: COPD with acute exacerbation Qualified Code(s): J44.1 - Chronic obstructive pulmonary disease with (acute) exacerbation (3) Hypertension: Reported history but not on any chronic medications. Blood pressures here have been generally 130s to 160s systolic over 80s diastolic. Status: Acute Qualifiers: Hypertension type: unspecified Qualified Code(s): I10 - Essential (primary) hypertension (4) Daily consumption of alcohol: No history of alcohol withdrawal reported. Has not required any benzodiazepines overnight Status: Acute (5) Nicotine dependence, cigarettes, with other nicotine-induced disorders: Greater than 2 packs a day, has nicotine patch Status: Acute (6) SBO (small bowel obstruction): First incidence of small bowel obstruction with only prior abdominal surgery cholecystectomy. Incidentally he does report daily vomiting upon a wakening since childhood. Status: Acute Additional A&P Information Decrease IV fluids As per my discussion with Dr. Youssef, will start clears after NG tube clamping today and have an enema ordered Once able to start oral intake will initiate antihypertensive medication, add as needed in the interim Breathing treatments Nicotine patch CIWA protocol if needed Lovenox added for DVT prophylaxis, has scd Supportive care otherwise Reviewed plans of care with patient and gave him an opportunity to ask questions Full code Attestations Medical Necessity Statement*: as per attending Coding Level of Care Code Acute Quality Inspector for [facility] Fwd Diagnoses Acute hyponatremia E87.1 COPD (chronic obstructive pulmonary disease) J44.1 COPD type: COPD with acute exacerbation Hypertension I10 Hypertension type: unspecified Daily consumption of alcohol Z78.9 Nicotine dependence, cigarettes, with other nicotine-induced disorders F17.218 SBO (small bowel obstruction) K56.609
--- NOTE | 2019-12-08 15:05 | P.HP_ITS ---
Providers/Chief Complaint Admitting Physician: Aaliyah Donaldson MD Primary Care Provider: Socorro Torres DO Chief Complaint: ABDOMINAL PAIN History of Present Illness Ck Calvillo is a 44 year old male who presented to the ER yesterday with generalized abdominal pain that started earlier in the morning. Patient states that since his childhood he wakes up every morning and has an episode of nausea and vomiting but yesterday had severe epigastric pain and felt distended. Pat ient states that he had a bowel movement day before and is usually never constipated. No similar episodes in the past. He has had a prior laparoscopic cholecystectomy. He was noted to have a small bowel obstruction on CT scan. He was admitted to the hospital and an NG tube was placed. Today's abdominal x-ray showed improvement therefore he does not have any pain. He does not feel distended. Medications/Allergies Home Medications Medication Instructions Recorded Confirmed Last Taken Type acetaminophen [Tylenol] 325 mg PO QID PRN 12/07/19 12/07/19 12/07/19 History aspirin 325 mg PO DAILY 12/07/19 12/07/19 12/06/19 History Allergies Allergy/AdvReac Type Severity Reaction Status Date / Time naproxen Allergy ALGY-Swell Verified 12/07/19 07:30 Lip/Tongue/Throat Sulfa (Sulfonamide Allergy ALGY-Rash Verified 12/07/19 07:30 Antibiotics) PFSH Acute PFSH: Medical History COPD (chronic obstructive pulmonary disease) Hypertension Normal coronary arteries [place] [facility] [place] Surgical History History of cholecystectomy Done in [place], [place] Family History Mother Cancer Father CHF (congestive heart failure) Social History Smoking and tobacco status: current every day smoker Alcohol intake: current Alcohol intake frequency: 3 or more drinks per day Alcohol type: beer Current occupational status: employed 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 Vitals/I&O/Wt Last Vital Signs Temp 98.3 F 12/08/19 11:34 Pulse 102 H 12/08/19 11:36 Resp 20 H 12/08/19 11:34 BP 175/84 12/08/19 11:34 Pulse Ox 91 12/08/19 11:34 12/08/19 12/08/19 12/08/19 06:59 14:59 22:59 Intake Total 768.333 / 2709.999 Output Total 400 / 2625 225 / 225 Balance 368.333 / 84.999 -225 / -225 Weight last 48 hrs Weight 175 lb Physical Exam Narrative: EXAM NARRATIVE: HEENT: Normocephalic Eye: Sclera /conjunctiva normal Abdomen: Soft to palpation, nontender, nondistended Neurological: Oriented to place person and time Skin: Intact, no lesions appreciated on gross exam Data : 12/08/19 02:15 12/08/19 02:15 A&P Assessment and plan (1) SBO (small bowel obstruction): 39-year-old gentleman with longstanding history of daily nausea and vomiting who presents with small bowel obstruction likely secondary to adhesions. Patient is improved significantly with conservative measures NG tube was discontinued GI soft diet Continue IV fluids Wean O2 to room air Incentive spirometry Appreciate Dr. Donaldson's input Hopefully patient can go home tomorrow morning Status: Acute Attestations Medical Necessity Statement*: Small bowel obstruction being managed conservatively Coding Level of Care Code Acute Sas Developer for [facility] Diagnoses SBO (small bowel obstruction) K56.609
[2019-12-08] MEDS: magnesium citrate Btl 296 mL PO (15:11)
[2019-12-08] MEDS: enoxaparin 40 mg/0.4 mL Syringe SUBCUT (20:08)
[2019-12-09] VITALS (7 sets, daily range): BP systolic 128–166; BP diastolic 71–92; PULSE 86–103; RESP 17–20; TEMP 37–37.3; O2SAT 92–97
[2019-12-09 04:04] LABS: Anion Gap 14.1 (5-19); Blood Urea Nitrogen 7 mg/dL (6-20); Calcium 8.3 mg/dL (8.5-10.5); Carbon Dioxide 24 mmol/L (22-29); Chloride 96 mmol/L (98-107); Glucose 110 mg/dL (65-115); Magnesium 2.1 mg/dL (1.7-2.3); Osmolality Calculated 266 mOsm/kg (285-295); Potassium 4.1 mmol/L (3.5-5.1); Sodium 130 mmol/L (136-145)
[2019-12-09] MEDS: multivitamin therapeutic Tablet 1 TAB PO (08:51)
[2019-12-09] MEDS: nicotine 21 mg Patch 1 PATCH TRANSDERMA (08:51)
[2019-12-09] MEDS: folic acid 1 mg Tablet PO (08:51)
[2019-12-09] MEDS: lisinopril 5 mg Tablet PO (08:51)
[2019-12-09] MEDS: thiamine 100 mg Tablet PO (08:51)
[2019-12-09] MEDS: pantoprazole 40 mg SDV IVP (09:33)
--- NOTE | 2019-12-09 09:59 | PC.CHAP ---
Pastoral Care Encounter/Spiritual Assessment Type of Contact [] Declined supervisor cabinetmaker visit [] Patient/Family/Request visit [] Outpatient visit [] Follow-up visit [] Physician referral [] Code/Alert [x] Routine visit [] Staff referral [] Actively dying [] Patient sleeping [] Family support [] [] Out of room [] Palliative care [] [] Receiving care in room [] Pre-surgical visit [] Trauma [] Long length of stay [] ICU visit [] Other: Relational/Emotional Strength [] Patient feels connected with others/family/visitors/staff [] Distress [] Loneliness/isolation [] Abandonment Spirituality of Patient [] Person of Ariadna [] Attends Oriental Orthodox of their Ariadna [] Believes in Prayer [] Reads Bible or Tenriism materials [] There are Spiritual issues to be addressed Printing Services Coordinator Interventions [x] Prayer [] Active listening [] Non-anxious presence [] Spiritual/emotional support [] Crisis/trauma care [] Spiritual counseling [] Bereavement support [] Provided bereavement packet [] Provided Bible/devotional materials [] Provided toy/stuffed animal, coloring book to patient or family member [] Provided Communion [] Anointing/[place] [] Salvation [x] Completed spiritual assessment [] Other: Impact on Illness or Injury [] Angry [] Fearful [] Anxious [] Often cries [] Exhaustion [] Unable to work [] Unable to attend temple [] Unable to walk/stand [] Unable to read [] Unable to drive [] Unable to eat/drink [] Unable to sleep [] Unable to be with family [] Patient intubated [] Other: Summary Patient resting well. Time spent with patient 10 min
[2019-12-09] MEDS: D5-NS 0.45% + KCL 20 mEq 20 MEQ/1,000 ML BAG 100 MEQ IV (11:10)
--- NOTE | 2019-12-09 13:10 | P.PN_ITS ---
Subjective Subjective: Interval history: Patient is doing well today. Tolerating diet after NG tube was removed. Has had a good bowel movement by his report. Hoping to go home today. Discussed with him that his blood pressures do run high and he would probably benefit from a medication for these. He states that he has taken medicines in the past but he is not sure what it was. 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 It is not easy for him to get to a provider on follow-up for things such as laboratory studies or repeat blood pressure checks. Ideally I would like to start him on HCTZ or an JEANNINE inhibitor but I am just not certain that he would follow-up for for evaluation of renal function in a few weeks. Vitals/I&O/Wt Last Vital Signs Temp 99.2 F 12/09/19 11:33 Pulse 93 12/09/19 11:33 Resp 20 H 12/09/19 11:33 BP 166/92 12/09/19 11:33 Pulse Ox 97 12/09/19 11:33 12/08/19 12/09/19 12/09/19 22:59 06:59 14:59 Intake Total 1800 / 2800 1000 / 3800 360 / 360 Output Total 600 / 825 350 / 1175 775 / 775 Balance 1200 / 1975 650 / 2625 -415 / -415 Physical Exam Const: OTHER: Alert, oriented x3, cooperative, not ill-appearing Resp: OTHER: Clear to auscultation today Cardio: OTHER: Regular rate GI: OTHER: Abdomen is soft, tender Extremity: NARRATIVE EXTREMITY EXAM: No pitting edema Neuro: OTHER: Face symmetric, speech clear, moves all extremities, no tremors Psych: OTHER: Normal affect, not anxious or agitated appearing Data : 12/08/19 02:15 12/09/19 03:33 A&P Assessment and plan (1) Acute hyponatremia: Suspect multifactorial from acute GI issues along with potomania > improved. Looking back it appears patient has had chronic issues with low sodium which I suspect is related to drinking beer regularly Status: Resolved (2) Hyponatremia with decreased serum osmolality: Baseline appears to be around 130 Status: Chronic (3) COPD (chronic obstructive pulmonary disease): Related to ongoing tobacco use, not on any chronic inhalers or oxygen at home, not acute Status: Chronic Qualifiers: COPD type: COPD with acute exacerbation Qualified Code(s): J44.1 - Chronic obstructive pulmonary disease with (acute) exacerbation (4) Hypertension: Reported history but not on any chronic medications to admission. Had been in the past. Status: Chronic Qualifiers: Hypertension type: unspecified Qualified Code(s): I10 - Essential (primary) hypertension (5) Daily consumption of alcohol: Primarily beer. No history of alcohol withdrawal reported. Status: Chronic (6) Nicotine dependence, cigarettes, with other nicotine-induced disorders: Greater than 2 packs a day Status: Chronic (7) SBO (small bowel obstruction): First incidence of small bowel obstruction with only prior abdominal surgery cholecystectomy. Incidentally he does report daily vomiting upon awakening since childhood. Status: Acute Additional A&P Information No contraindication to discharge from my standpoint. I did go on and write a prescription for patient to have some amlodipine and an albuterol inhaler. Recommend follow-up with PCP, listed as Socorro Torres, in a couple of weeks but I am not sure that he will be able to make it due to work. Reviewed all of this with patient and gave him an opportunity to ask questions. Full code Attestations Medical Necessity Statement*: as per attending Coding Level of Care Code Acute Clarifying Plant Operator for [facility] Fwd Diagnoses Acute hyponatremia E87.1 Hyponatremia with decreased serum osmolality E87.1 COPD (chronic obstructive pulmonary disease) J44.1 COPD type: COPD with acute exacerbation Hypertension I10 Hypertension type: unspecified Daily consumption of alcohol Z78.9 Nicotine dependence, cigarettes, with other nicotine-induced disorders F17.218 SBO (small bowel obstruction) K56.609
--- NOTE | 2019-12-09 14:08 | PM.PN ---
Subjective Subjective: Interval history: Patient has been doing well, denies nausea vomiting, tolerating regular diet and had multiple bowel movement Vitals/I&O/Wt Last Vital Signs Temp 99.2 F 12/09/19 11:33 Pulse 93 12/09/19 11:33 Resp 20 H 12/09/19 11:33 BP 166/92 12/09/19 11:33 Pulse Ox 97 12/09/19 11:33 12/08/19 12/09/19 12/09/19 22:59 06:59 14:59 Intake Total 1800 / 3800 1000 / 3800 600 / 600 Output Total 600 / 1175 350 / 1175 775 / 775 Balance 1200 / 2625 650 / 2625 -175 / -175 Physical Exam Narrative: EXAM NARRATIVE: Abdomen: Soft, nontender, nondistended Data : 12/08/19 02:15 12/09/19 03:33 A&P Assessment and plan (1) SBO (small bowel obstruction): Resolved DC home today Status: Acute (2) Hyponatremia with decreased serum osmolality: Sodium stable Status: Chronic (3) Hypertension: Stable Status: Chronic Qualifiers: Hypertension type: unspecified Qualified Code(s): I10 - Essential (primary) hypertension Attestations Medical Necessity Statement*: DC home today Coding Level of Care Code Acute Scribing Machine Operator for [facility] Diagnoses SBO (small bowel obstruction) K56.609 Hyponatremia with decreased serum osmolality E87.1 Hypertension I10 Hypertension type: unspecified
--- NOTE | 2019-12-09 14:09 | P.DS_ITS ---
Discharge Providers Date of Admission: 12/07/19 10:06 Date of Discharge: December 09, 2019 Attending Provider at Admission: Aaliyah Donaldson MD Attending Provider at Discharge: Luigi Youssef MD Primary Care Provider: Socorro Torres DO Diagnoses at Discharge Discharge Diagnosis (1) Acute hyponatremia: Status: Resolved Problem details: Suspect multifactorial from acute GI issues along with potomania > improved. Looking back it appears patient has had chronic issues with low sodium which I suspect is related to drinking beer regularly (2) Hyponatremia with decreased serum osmolality: Status: Chronic (3) COPD (chronic obstructive pulmonary disease): Status: Chronic Qualifiers: COPD type: COPD with acute exacerbation Qualified Code(s): J44.1 - Chronic obstructive pulmonary disease with (acute) exacerbation (4) Hypertension: Status: Chronic Qualifiers: Hypertension type: unspecified Qualified Code(s): I10 - Essential (primary) hypertension (5) Daily consumption of alcohol: Status: Chronic (6) Nicotine dependence, cigarettes, with other nicotine-induced disorders: Status: Chronic (7) SBO (small bowel obstruction): Status: Acute Reason for Visit Reason for Visit: Reason For Visit: ABDOMINAL PAIN Hospital Course Discharge Summary: maura Calvillo is a 44 year old male who presented to the ER yesterday with generalized abdominal pain that started earlier in the morning. Patient states that since his childhood he wakes up every morning and has an episode of nausea and vomiting but yesterday had severe epigastric pain and felt distended. Patient states that he had a bowel movement day before and is usually never constipated. No similar episodes in the past. He has had a prior laparoscopic cholecystectomy. He was noted to have a small bowel obstruction on CT scan. He was admitted to the hospital and an NG tube was placed. Today's abdominal x-ray showed improvement therefore he does not have any pain. He does not feel distended. Patient is admitted to the hospital for NG tube and bowel rest. By following day he had return of bowel function with aggressive bowel regimen. At time of discharge his vital signs are stable he is tolerating liquid diet. Physical Exam Narrative: EXAM NARRATIVE: Abdomen: Soft, nondistended, nontender Discharge Data Data Completed and Pending: Completed Studies During Hospitalization Category Date Time Status CT abdomen pelvis w con* [id number] Urge nt Cat Scan 12/07/19 07:27 Completed XR abdomen min 2V [id number] Routine Exams 12/08/19 06:53 Completed XR chest 1V delmy ble [id number] Stat Exams 12/07/19 09:37 Completed Labs from last 24 hours 12/09/19 03:33 Sodium 130 L Potassium 4.1 Chloride 96 L Carbon Dioxide 24 Anion Gap 14.1 BUN 7 Creatinine 0.7 GFR Calculation 122.0 Glucose 110 Calculated Osmolal ity 266 L Calcium 8.3 L Phosphorus 4.0 Magnesium 2.1 Vitals: Last Vital Signs Temp 99.2 F 12/09/19 11:33 Pulse 93 12/09/19 11:33 Resp 20 H 12/09/19 11:33 BP 166/92 12/09/19 11:33 Pulse Ox 97 12/09/19 11:33 Discharge Plan Discharge Patient Disposition: Home, Self-Care Condition: Stable Prescriptions: New amlodipine 5 mg tablet 5 mg PO DAILY Qty: 30 RF: 1 ProAir HFA 90 mcg/actuation HFA aerosol inhaler 2 inh INHALATION QID PRN (Reason: shortness of breath or wheezing) Qty: 18 RF: 0 Continued Tylenol 325 mg Tablet 325 mg PO QID PRN (Reason: Pain) RF: 0 aspirin 325 mg Tablet 325 mg PO DAILY RF: 0 Discharge Orders: Discharge Order (Routine); Ordered 12/09/19 Ordered By: Luigi Youssef Referrals: Socorro Torres DO [Primary Care Provider] - 2 weeks (At follow up needs BP check. Faxed face sheet to [facility] family medicine and instructed them to make an appointment and call you with that information. 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
== END 2019-12-09 16:06 | disposition home or self-care (01) | DRG 389 ==
LOC: ER 09:19 → MEDSURG 12:03
PROVIDERS: Physician Assistant; Admitting Provider Hospitalist; Emergency Provider Family Medicine; PCP Family Medicine; Visit Provider Surgery
DX: K56.609 Unspecified intestinal obstruction, unspecified as to partial versus complete obstruction (principal); J44.1 Chronic obstructive pulmonary disease with (acute) exacerbation; E87.1 Hypo-osmolality and hyponatremia; I10 Essential (primary) hypertension; F10.20 Alcohol dependence, uncomplicated; F17.210 Nicotine dependence, cigarettes, uncomplicated; Z79.82 Long term (current) use of aspirin
CPT/HCPCS: 12345; 36415; 36600; 71045; 74019; 74177; 80048; 80051; 80053; 81001; 82570; 82810; 83605; 83690; 83735; 83986; 84100; 84300; 84550; 85025; 94640; 96372; 96375; 99284; C9113; J1650; J2060; J2270; J2405; J7030; Q9967

== ENCOUNTER → 2020-02-06 11:22 | Outpatient (BNVA) | payer MEDICAID, SELFPAY | PROVIDERS: PCP Family Medicine; Visit Provider Family Medicine | DX: J44.1 Chronic obstructive pulmonary disease with (acute) exacerbation (principal); I10 Essential (primary) hypertension; E87.1 Hypo-osmolality and hyponatremia; F17.218 Nicotine dependence, cigarettes, with other nicotine-induced disorders; Z78.9 Other specified health status | CPT/HCPCS: 80048 ==